=== PATIENT | male | born 1985 | race Hispanic/Latino ===

== ENCOUNTER 2018-05-22 22:04 | Emergency (ER) | payer SELFPAY ==
[2018-05-22] MEDS ORDERED: HYDROcodone/Acetaminophen 10/325 mg Tablet ONE (22:15)
[2018-05-22] MEDS ORDERED: Adacel (T-DAP) 0.5 ML VIAL ONE (22:25)
[2018-05-22] MEDS ORDERED: Silver Sulfadiazine 1% Cream 50 GM JAR ONE (22:51)
== END 2018-05-22 23:14 | disposition home or self-care (01) ==
LOC: BURERS 22:04
DX: T22.212A Burn of second degree of left forearm, initial encounter (principal); F17.210 Nicotine dependence, cigarettes, uncomplicated; X19.XXXA Contact with other heat and hot substances, initial encounter
CPT/HCPCS: 16020; 90471; 90715

== ENCOUNTER 2021-11-06 18:09 | Emergency (ER) | payer SELFPAY ==
[2021-11-06 18:53] LABS: Acetaminophen Less than 10.0 mcg/mL (10.0-30.0); Alcohol 360 mg/dL (Less than 10); Salicylate Less than 8.0 mg/dL (15.0-30.0)
[2021-11-06 18:54] LABS: #Basophils 0.1 thou/uL (0.0-0.2); #Eosinphils 0.1 thou/uL (0.0-0.7); #Lymphocytes 1.9 thou/uL (1.20-3.40); #Monocytes 0.5 thou/uL (0.11-0.59); #Neutrophils 1.5 thou/uL (1.40-6.50); %Basophils 2.2 % (0.0-1.0); %Eosinophils 2.1 % (0.0-10.0); %Lymphocytes 47.1 % (21.0-51.0); %Monocytes 11.1 % (0.0-10.0); %Neutrophils 37.5 % (42.0-75.0); Hemoglobin 16.1 g/dL (14.0-18.0); Mean Corpuscular HGB CONC 35.5 g/dL (32.0-36.0); Mean Corpuscular Hemoglobin 33.7 pg (27.0-31.0); Mean Corpuscular Volume 94.8 fL (78.0-98.0); Mean Platelet Volume 8.5 fL (7.4-10.4); Platelet Count 115 thou/uL (130-400); Platelet Morphology Comment Appears Decreased; RBC Distribution Width 11.5 % (11.5-14.5); Red Blood Cell (RBC) Count 4.78 mill/uL (4.70-6.10); White Blood Cell (WBC) Count 4.1 thou/uL (4.8-10.8)
[2021-11-06 18:57] LABS: ALT (SGPT) 521 U/L (8-55); AST (SGOT) 655 U/L (5-34); Albumin 4.7 g/dL (3.5-5.0); Alkaline Phosphatase 77 U/L (40-110); Anion Gap 16 mmol/L (10-20); BUN (Urea Nitrogen) 7 mg/dL (8.9-20.6); Bilirubin, Total 0.9 mg/dL (0.2-1.2); Calc. Creatinine Clearance 0 mL/min (70-130); Calcium 8.4 mg/dL (7.8-10.44); Carbon Dioxide 27 mmol/L (22-29); Chloride 101 mmol/L (98-107); Globulin 4.5 g/dL (2.4-3.5); Glucose 114 mg/dL (70-105); Potassium 3.3 mmol/L (3.5-5.1); Protein, Total 9.2 g/dL (6.0-8.3); Sodium 141 mmol/L (136-145)
[2021-11-06 19:04] LABS: MDiff Complete? YES; Manual Diff?? NO
== END 2021-11-06 20:37 | disposition short-term general hospital (02) ==
LOC: BURERS 18:09
DX: R45.851 Suicidal ideations (principal); F10.129 Alcohol abuse with intoxication, unspecified; F17.210 Nicotine dependence, cigarettes, uncomplicated; Y90.8 Blood alcohol level of 240 mg/100 ml or more
CPT/HCPCS: 36415; 80053; 80307; 84443; 85025; 93005

== ENCOUNTER 2023-11-04 04:26 | Emergency (ER) | payer SELFPAY ==
[2023-11-04 05:11] LABS: ALT (SGPT) 229 U/L (8-55); AST (SGOT) 463 U/L (5-34); Acetaminophen Less than 10 mcg/mL (10.0-30.0); Albumin 3.7 g/dL (3.5-5.0); Alcohol 398.8 mg/dL (Less than 10); Alkaline Phosphatase 132 U/L (40-110); Anion Gap 14 mmol/L (10-20); BUN (Urea Nitrogen) 8 mg/dL (8.9-20.6); Bilirubin, Total 0.9 mg/dL (0.2-1.2); Calc. Creatinine Clearance 0 mL/min (70-130); Calcium 8.4 mg/dL (7.8-10.44); Carbon Dioxide 22 mmol/L (22-29); Chloride 109 mmol/L (98-107); Estimated GFR 115; Globulin 4.6 g/dL (2.4-3.5); Glucose 122 mg/dL (70-105); Potassium 3.2 mmol/L (3.5-5.1); Protein, Total 8.3 g/dL (6.0-8.3); Salicylate Less than 8.0 mg/dL (15.0-30.0); Sodium 142 mmol/L (136-145)
[2023-11-04 05:12] LABS: #Basophils 0.1 thou/uL (0.0-0.2); #Eosinphils 0.2 thou/uL (0.0-0.7); #Monocytes 0.8 thou/uL (0.11-0.59); #Neutrophils 2.8 thou/uL (1.40-6.50); %Basophils 1.5 % (0.0-1.0); %Eosinophils 3.1 % (0.0-10.0); %Lymphocytes 43.3 % (21.0-51.0); %Monocytes 11.2 % (0.0-10.0); Hematocrit 34.3 % (42.0-52.0); Mean Corpuscular HGB CONC 32.2 g/dL (32.0-36.0); Mean Corpuscular Volume 89.9 fl (78.0-98.0); Mean Platelet Volume 9.2 fL (7.4-10.4); Platelet Adequacy Comment Appears Decreased; Platelet Count 78 10x3/uL (130-400); RBC Distribution Width 14.8 % (11.5-14.5); Red Blood Cell (RBC) Count 3.81 mill/uL (4.70-6.10); White Blood Cell (WBC) Count 6.9 10x3/uL (4.8-10.8)
[2023-11-04 05:15] LABS: MDiff Complete? YES; Manual Diff?? NO
[2023-11-04] MEDS ORDERED: Folic Acid 5 MG/ML MDV ONE (06:18)
[2023-11-04] MEDS ORDERED: Thiamine HCl 200 MG/2 ML VIAL ONE (06:19)
[2023-11-04] MEDS ORDERED: Multivit, Adult Inj 10 ML VIAL ONE (06:19)
[2023-11-04 08:56] LABS: Bilirubin Small (Negative); Blood, Urine Small (Negative); Glucose, Urine (Dipstick) Negative (Negative); Ketone, Urine Negative (Negative); Leukocyte Negative (Negative); Nitrite Negative (Negative); Protein, Urine (Dipstick) Trace mg/dL (Neg-Trace); Urobilinogen > or = 8.0 mg/dL (Less than 2)
[2023-11-04 09:03] LABS: Clarity Hazy (Clear)
[2023-11-04 09:04] LABS: Bacteria/HPF None Seen HPF (None Seen); CAUTI Indications for Culture Dysuria,urgency,freq; RBC/HPF 0-3 HPF (0-3); Squamous Epithelial 0-3 HPF (0-3); WBC/HPF None Seen HPF (0-3)
[2023-11-04 09:06] LABS: Urine Culture Reflex No No
[2023-11-04 09:07] LABS: Amphetamine Not Detected (NotDetected); Barbiturates Screen Not Detected (NotDetected); Benzodiazepine Screen Not Detected (NotDetected); Cocaine Metabolite Screen Not Detected (NotDetected); Methadone Not Detected (NotDetected); Methamphetamine Not Detected (NotDetected); Opiate Screen Not Detected (NotDetected); Oxycodone Screen Not Detected (NotDetected); Phencyclidine (PCP) Not Detected (NotDetected); THC/Cannabinoid Screen Not Detected (NotDetected); Tricyclic Screen Not Detected (NotDetected)
[2023-11-04] MEDS ORDERED: chlordiazePOXIDE HCl 25 MG CAP ONE (15:59)
[2023-11-04] MEDS ORDERED: Acetaminophen 500 MG TAB ONE (16:52)
== END 2023-11-04 17:03 ==
LOC: BURERS 04:26
DX: R45.851 Suicidal ideations (principal); F10.229 Alcohol dependence with intoxication, unspecified; Y90.8 Blood alcohol level of 240 mg/100 ml or more; F32.9 Major depressive disorder, single episode, unspecified; F17.210 Nicotine dependence, cigarettes, uncomplicated
CPT/HCPCS: 36415; 80053; 80306; 80307; 81001; 84443; 85025; 93005; 96365; 96366; J3411